=== PATIENT | male | born 1955 | race Caucasian/White ===

== ENCOUNTER 2021-01-17 07:15 | Day surgery (SDC) | payer MEDICARE, OTHER ==
[~2021-01-17] VITALS: Ht 167.6 cm; Wt 79.5 kg
[~2021-01-17 07:15] MED LIST: AMARYL4 MG PO; ATORVASTATIN CA40 MG PO; METFORMIN HCL1000 MG PO; NEURONTIN300 MG PO; NORVASC5 MG PO; ZESTRIL40 MG PO
--- NOTE | 2021-01-17 08:52 | NUR ---
PT ALERT, ORIENTED AND SUPPORTED BY HIS SISTER TOSHIA. PT HAS HAD PREVIOUS SCOPES AND NOTICED SOME DISCOLORATION IN HIS STOOLS AND IS FOLLOWING UP. PT DEALT WITH PREP APPROPRIATELY. PT REQUESTED PRAYER, WILL FOLLOW
--- NOTE | 2021-01-17 09:07 | NUR ---
01/17/21 0907 Fadia Butler 0869 PT ARRIVED IN PACU NON RESPONSIVE TO NOXIOUS STIMULI WITH OPA IN PLACE. ABD SOFT AND PASSING FLATUS. 0900 PT REACTIVE. OPA REMOVED. 904 SITTING UP IN BED TALKING TO STAFF SIPPING ON JUICE.
--- NOTE | 2021-01-17 09:37 | OR ---
[facility] [address], [place] [address] Signed DATE OF OPERATION: 01/17/2021 SURGEON: Lisy Jackson MD PREOPERATIVE DIAGNOSES: 1. Personal history of colonic polyps (2018). 2. Internal hemorrhoids. 3. Colitis versus diverticulitis. 4. Intermittent constipation associated with rectal bleeding and anal spasm and pain. 5. Mother with colon cancer at age 57. POSTOPERATIVE DIAGNOSES: 1. 4 mm polyps x2 at periappendiceal orifice. 2. 7 mm polyp in distal right colon. 3. Colitis from the anus up to 50 cm. 4. Minimal to moderate internal hemorrhoids. PROCEDURE: Colonoscopy with hot biopsy and random cold biopsies. ESTIMATED BLOOD LOSS: None. INDICATIONS: Marnie is a 65-year-old gentleman asked to see me for a followup colonoscopy. He spoke of a colonoscopy around 2002. He cannot remember those results. Dr. Montez oRjas did a colonoscopy in November of 2017 in [place], [place]. He had several small hyperplastic polyps removed as well as one small adenomatous polyp. There were small internal hemorrhoids. There was some confusion between whether or not he had diverticulitis versus colitis. However, Estrella feels fairly strongly that he did not have colitis in the past. However, he does describe intermittent constipation associated with rectal bleeding and anal pain and spasm. Also, his mother was diagnosed with colon cancer at age 57. He has continued to have some intermittent rectal bleeding. He has moved down to [place], [place] to be closer to his sister. His diabetes is generally not controlled well and he used to smoke and drink pretty heavily in the past. He also was heavily involved with methamphetamines a few years ago. He said he got in trouble, but it helped after he went to court. He said he is not doing much better with a counselor. No methamphetamines for over two years. In the office, I gave him a pamphlet on colonoscopy. He understands the nature of that test. We also reviewed the written instructions for the bowel prep line by line. He understands there is risk to the Electronically Signed By: LISY JACKSON MD 01/17/21 0937 PATIENT NAME: MARNIE LESTER OPERATIVE REPORT DATE OF : 51 REPORT #: [id number] PHYSICIAN: LISY JACKSON MD PCP: STEVEN RIZVI MD REPORT IS CONFIDENTIAL AND NOT TO BE RELEASED WITHOUT AUTHORIZATION [facility] [address], [place] [address] Signed procedure including, but not limited to gas bloating, crampy abdominal pain, bleeding, perforation requiring surgery, and missed diagnosis. Also because of his significant medical history and uncontrolled diabetes and so forth, we asked that an anesthesia provider help us with increased monitoring and sedation with propofol. That proved to be a her decision as he took significant amount of propofol. Marnie had expressed understanding and wished to proceed. PROCEDURE NOTE: Marnie was taken into our endoscopy suite and placed in the left lateral decubitus position. He was given monitored anesthesia care with propofol per our nurse construction equipment mechanic. A digital rectal exam was performed and he does have some small external hemorrhoid tissue. He had good sphincter tone. We did not specifically examine the prostate today. The adult colonoscope was introduced and we immediately encountered significant colitis of the rectum. It starts at the anus and it is quite significant up into the sigmoid colon and at about 50 cm in the left colon. There were areas of ulceration, it was bleeding and there was significant mucus. All concerning for ulcerative colitis. The scope passed further up into the cecum itself without difficulty. His prep was good. We could easily see the appendiceal orifice. We could also see the ileocecal valve. We took pictures throughout for photodocumentation. We removed the above polyps with the help of hot biopsy forceps. We made several attempts to turn our colonoscope into his terminal ileum. It looked healthy, but we could not get the scope to advance up into the terminal ileum itself. The scope was then slowly withdrawn. We did take random biopsies throughout the right colon, transverse colon, left colon, sigmoid colon and rectum. Upon retroflexion of scope, he does have minimal to moderate internal hemorrhoids and again, the inflammatory changes start at the anus and travel in a contiguous fashion up to about 50 cm in the left colon. After this, the gas was suctioned out and the colonoscope removed. Marnie tolerated the procedure quite well. RECOMMENDATIONS: I will see Marnie back in my office in 7 to 14 days. It appears he probably had ulcerative colitis for several years. We will hold off any treatment now until we get the biopsies back. Lisy Jackson MD [facility] /[id number] Electronically Signed By: LISY JACKSON MD 01/17/21 0937 PATIENT NAME: MARNIE LESTER OPERATIVE REPORT DATE OF : 51 REPORT #: [id number] PHYSICIAN: LISY JACKSON MD PCP: STEVEN RIZVI MD REPORT IS CONFIDENTIAL AND NOT TO BE RELEASED WITHOUT AUTHORIZATION [facility] [address] [place] [address] Signed cc: MD Lisy Oliver MD Copies: LISY JACKSON MD ~ Electronically Signed By: LISY JACKSON MD 01/17/21 0937 PATIENT NAME: MARNIE LESTER OPERATIVE REPORT DATE OF : 51 REPORT #: [id number] PHYSICIAN: LISY JACKSNO MD PCP: STEVEN RIZVI MD REPORT IS CONFIDENTIAL AND NOT TO BE RELEASED WITHOUT AUTHORIZATION
--- NOTE | 2021-01-22 16:33 | PATH ---
[facility] [address] [place], [place] [address] Signed SPECIMEN(S): A DISTAL ASCENDING POLYP SPECIMEN(S): B COLON POLYP, PERIAPPENDICEAL SPECIMEN(S): C ASCENDING SPECIMEN(S): D TRANSVERSE SPECIMEN(S): E DESCENDING SPECIMEN(S): F DESCENDING 50 CM SPECIMEN(S): G SIGMOID 30 CM SPECIMEN(S): H SIGMOID 20 CM SPECIMEN(S): I RECTUM 10 CM SPECIMEN SOURCE: A. DISTAL ASCENDING POLYP B. COLON POLYP, PERIAPPENDICEAL C. ASCENDING D. TRANSVERSE E. DESCENDING F. DESCENDING 50 CM G. SIGMOID 30 CM H. SIGMOID 20 CM I. RECTUM 10 CM CLINICAL HISTORY: Personal history of colon polyps; family history of colon cancer. Postop diagnosis: Proctocolitis; history of colitis; internal/external hemorrhoids; polyps MICROSCOPIC DESCRIPTION: Histologic sections of all submitted blocks are examined by light microscopy. These findings, together with the gross examination, support the pathologic diagnosis. FINAL PATHOLOGIC DIAGNOSIS: A. Colon, distal ascending, polyp, polypectomy: - Tubular adenoma. - Negative for high-grade dysplasia or malignancy. B. Colon, periappendiceal polyps x2, polypectomies: - Fragments of tubular adenoma; negative for high-grade dysplasia. - Fragment of sessile serrated adenoma/polyp. - Negative for malignancy. C. Colon, ascending, biopsy: - Colonic mucosa with mild mucosal hemorrhage. - Negative for active, chronic, or microscopic colitis. PATIENT NAME: MARNIE LESTER PATHOLOGY DATE OF : 51 REPORT #: [id number] PHYSICIAN: ERICKSON PATHOLOGY PCP: STEVEN RIZVI MD REPORT IS CONFIDENTIAL AND NOT TO BE RELEASED WITHOUT AUTHORIZATION [facility] [address] [place], [place] [address] Signed - Negative for dysplasia or malignancy. D. Colon, transverse, biopsy: - Colonic mucosa with no histopathologic abnormality. - Negative for active, chronic, or microscopic colitis. - Negative for dysplasia or malignancy. E. Colon, descending, biopsy: - Colonic mucosa with no histopathologic abnormality. - Negative for active, chronic, or microscopic colitis. - Negative for dysplasia or malignancy. F. Colon, descending at 50 cm, biopsy: - Colonic mucosa with mild mucosal hemorrhage. - Negative for active, chronic, or microscopic colitis. - Negative for dysplasia or malignancy. G. Colon, sigmoid at 30 cm, biopsy: - Chronic, active colitis. - Negative for granulomas, dysplasia, or malignancy. H. Colon, sigmoid at 20 cm, biopsy: - Chronic, active colitis. - Negative for granulomas, dysplasia, or malignancy. I. Rectum at 10 cm, biopsy: - Chronic, active colitis. - Negative for granulomas, dysplasia, or malignancy. COMMENT: Regarding specimens G-H: The provided clinical history of "colitis" is noted. The findings in the sigmoid and rectal biopsies are compatible with inflammatory bowel disease and given the location and lack of granulomas, ulcerative colitis is favored. If this is the first time diagnosis, additional clinical correlation is required because the differential diagnosis also includes infection or diverticular disease associated colitis. NAL:cml:C2NR GROSS DESCRIPTION: Nine specimens are received in nine containers, labeled "Lester, Marnie." A. The specimen, labeled "Lester, Marnie, #1," and designated as "Lester, distal ascending" is received in formalin and consists of one silvestre soft tissue fragment that measures 0.3 cm in greatest dimension. The specimen is entirely submitted in cassette (A1). B. The specimen, labeled "Marnie Lester, #2," and designated as "Lester, colon polyp, periappendiceal" is received in formalin and consists of four PATIENT NAME: MARNIE LESTER PATHOLOGY DATE OF : 51 REPORT #: [id number] PHYSICIAN: ERICKSON KAISER PCP: STEVEN RIZVI MD REPORT IS CONFIDENTIAL AND NOT TO BE RELEASED WITHOUT AUTHORIZATION [facility] [address] [place], [place] [address] Signed white and silvestre soft tissue fragments that measure 0.2 to 0.4 cm in greatest dimension. The specimen is entirely submitted in cassette (B1). C. The specimen, labeled "Marnie Lester, #3," and designated as "Lester, ascending" is received in formalin and consists of one silvestre soft tissue fragment that measures 0.4 cm in greatest dimension. The specimen is entirely submitted in cassette (C1). D. The specimen, labeled "Marnie Lester, #4," and designated as "Lester, transverse" is received in formalin and consists of one silvestre soft tissue fragment that measures 0.4 cm in greatest dimension. The specimen is entirely submitted in cassette (D1). E. The specimen, labeled "LesterSanjuMarnie, #5," and designated as "Lester, descending" is received in formalin and consists of one silvestre soft tissue fragment that measures 0.3 cm in greatest dimension. The specimen is entirely submitted in cassette (E1). F. The specimen, labeled "Lester, Marnie, #6," and designated as "Lester, descending 50 cm" is received in formalin and consists of one silvestre soft tissue fragment that measures 0.4 cm in greatest dimension. The specimen is entirely submitted in cassette (F1). G. The specimen, labeled "Lester, Marnie, #7," and designated as "Lester, sigmoid 30 cm" is received in formalin and consists of one silvestre soft tissue fragment that measures 0.3 cm in greatest dimension. The specimen is entirely submitted in cassette (G1). H. The specimen, labeled "Lseter, Marnie, #8," and designated as "Lester, sigmoid 20 cm" is received in formalin and consists of one silvestre soft tissue fragment that measures 0.3 cm in greatest dimension. The specimen is entirely submitted in cassette (H1). I. The specimen, labeled "LesterSanju lukelas, #9," and designated as "Lester, rectum 10 cm" is received in formalin and consists of one silvestre soft tissue fragment that measures 0.3 cm in greatest dimension. The specimen is entirely submitted in cassette (I1). FB (under the direct supervision of a pathologist) The Gross Description was prepared using a voice recognition system. The report was reviewed for accuracy; however, sound-alike word errors, addition and/or deletions may occur. If there is any question about this report, please contact Client Services. PERFORMING LABORATORY: The technical component was performed by [employer], Nilsa Chambers, PATIENT NAME: MARNIE LESTER PATHOLOGY DATE OF : 51 REPORT #: [id number] PHYSICIAN: ERICKSON KAISER PCP: STEVEN RIZVI MD REPORT IS CONFIDENTIAL AND NOT TO BE RELEASED WITHOUT AUTHORIZATION [facility] [address] [place], [place] [address] [place] [address] (Director Of Application Development: Karla Martinez MD; CLIA# [id number]). Professional interpretation [facility], [address] [address] (CLIA# [id number]). Diagnostician: Deyanira Smalls MD Pathologist Electronically Signed 01/22/2021 Copies: ~ PATIENT NAME: MARNIE LESTER PATHOLOGY DATE OF : 51 REPORT #: [id number] PHYSICIAN: ERICKSON KAISER PCP: STEVEN RIZVI MD REPORT IS CONFIDENTIAL AND NOT TO BE RELEASED WITHOUT AUTHORIZATION
== END 2021-01-17 09:30 | disposition home or self-care (01) ==
LOC: DS 07:15 → OPS 07:15 → DS 08:00 → OPS 08:00
PROVIDERS: ATTEND Colon & Rectal Surgery
PROC: 0DBL8ZX Excision of Transverse Colon, Via Natural or Artificial Opening Endoscopic, Diagnostic (ICD-10-PCS; 2021-01-17)
PROC: 0DBN8ZX Excision of Sigmoid Colon, Via Natural or Artificial Opening Endoscopic, Diagnostic (ICD-10-PCS; 2021-01-17)
PROC: 0DBP8ZX Excision of Rectum, Via Natural or Artificial Opening Endoscopic, Diagnostic (ICD-10-PCS; 2021-01-17)
PROC: 0DBB8ZX Excision of Ileum, Via Natural or Artificial Opening Endoscopic, Diagnostic (ICD-10-PCS; 2021-01-17)
PROC: 0DBC8ZX Excision of Ileocecal Valve, Via Natural or Artificial Opening Endoscopic, Diagnostic (ICD-10-PCS; 2021-01-17)
PROC: 0DBH8ZX Excision of Cecum, Via Natural or Artificial Opening Endoscopic, Diagnostic (ICD-10-PCS; principal; 2021-01-17 08:00)
DX: K63.5 Polyp of colon (principal); K62.5 Hemorrhage of anus and rectum; K64.0 First degree hemorrhoids; K52.9 Noninfective gastroenteritis and colitis, unspecified; I10 Essential (primary) hypertension; E78.5 Hyperlipidemia, unspecified; E11.42 Type 2 diabetes mellitus with diabetic polyneuropathy; Z79.84 Long term (current) use of oral hypoglycemic drugs; Z86.010 Personal history of colon polyps; Z80.0 Family history of malignant neoplasm of digestive organs
CPT/HCPCS: J2704; J7121

== ENCOUNTER 2022-04-04 10:18 | Emergency (ER) | payer MEDICARE, OTHER ==
[~2022-04-04] VITALS: Ht 167.6 cm; Wt 79.4 kg
[2022-04-04] MEDS ORDERED: MESALAMINE1.2 GM PO (10:32)
== END 2022-04-04 11:31 | disposition home or self-care (01) ==
LOC: ED 10:18
DX: T63.441A Toxic effect of venom of bees, accidental (unintentional), initial encounter (principal); Z87.891 Personal history of nicotine dependence; Z79.899 Other long term (current) drug therapy; Z79.84 Long term (current) use of oral hypoglycemic drugs
CPT/HCPCS: 99282; Q0163

== ENCOUNTER 2024-12-19 09:11 | Emergency (ER) | payer MEDICARE, OTHER ==
[~2024-12-19] VITALS: Ht 167.6 cm; Wt 73.3 kg
[~2024-12-19 09:11] MED LIST changes: +MESALAMINE1.2 GM PO
[2024-12-19] MEDS ORDERED: ondansetron HCL 4 MG/2 ML VIAL IV PRN (09:45)
[2024-12-19] MEDS ORDERED: KETOROLAC TROMETHAMINE 15 MG/ML VIAL IV ONE (09:45)
[2024-12-19 10:08] LABS: BASOPHILS 0.4 % (0-2); EOSINOPHILS 0.8 % (0-6); HEMATOCRIT 45.9 % (35.0-50.0); HEMOGLOBIN 16.2 g/dL (12.0-18.0); LYMPHOCYTES 8.5 % (24-44); MCHC 35.4 g/dl (30-36); MCV 84.9 fl (81-99); MONOCYTES 4.6 % (0-12); NEUTROPHILS 85.7 % (39-80); PLATELET COUNT 286 K/uL (140-440); RBC 5.41 M/ul (4.3-5.7); RDW 13.7 (10.5-15.0)
[2024-12-19 10:23] LABS: ALBUMIN 3.7 g/dL (3.4-5.0); ALBUMIN/GLOBULIN RATIO 1.09 (1.1-2.4); ANION GAP 9.6 (7-21); BILIRUBIN, TOTAL 0.5 mg/dL (0.2-1.0); BUN/CREATININE RATIO 19.49 (6.0-28.6); CALCIUM 8.8 mg/dL (8.5-10.1); CREATININE, SERUM 1.18 mg/dL (0.70-1.30); POTASSIUM 3.6 mmol/L (3.5-5.1); PROTEIN, TOTAL 7.1 g/dL (6.4-8.2)
[2024-12-19 10:36] LABS: BILIRUBIN, URINE NEGATIVE (negative); BLOOD/HGB, URINE TRACE-I (Negative); KETONE, URINE NEGATIVE (Negative); LEUK ESTERASE, URINE NEGATIVE (negative); NITRITE, URINE NEGATIVE (negative); PH, URINE 6.5 (5-7)
[2024-12-19 10:41] LABS: EPITHELIAL CELLS, URINE SQUAMOUS 1+ /lpf (0-1+)
[2024-12-19 10:42] LABS: BACTERIA, URINE NONE SEEN /hpf (negative); CASTS, URINE NONE SEEN \\lpf; COLLECTION TYPE, URINE CLEAN CATCH; CRYSTALS, URINE NONE SEEN (0-1+); REFLEX CULTURE, URINE No (No); WHITE BLOOD CELLS, URINE 0-1 /HPF (0-5)
[2024-12-19] MEDS ORDERED: FLOMAX0.4 MG PO (13:27)
[2024-12-19] MEDS ORDERED: TAMSULOSIN HCL 0.4 MG CAP PO ONE (13:30)
[2024-12-19] MEDS ORDERED: KETOROLAC TROMETHAMINE 15 MG/ML VIAL IM ONE (13:30)
[2024-12-19 13:34] VITALS: BP 133/74
== END 2024-12-19 13:35 | disposition home or self-care (01) ==
LOC: ED 09:11
PROVIDERS: Emergency Medicine
DX: N13.2 Hydronephrosis with renal and ureteral calculous obstruction (principal); I10 Essential (primary) hypertension; E11.9 Type 2 diabetes mellitus without complications; Z87.891 Personal history of nicotine dependence
CPT/HCPCS: 36415; 74176; 80053; 81001; 85025; 96374; 96375; 99284-25; J1885; J2405